=== PATIENT | female | born 1945 | race Caucasian/White ===

== ENCOUNTER 2017-01-19 11:30 | Inpatient (IN) | payer OTHER ==
[2017-01-19] VITALS (7 sets, daily range): BP systolic 135–225; BP diastolic 46–88
[~2017-01-19] VITALS: Ht 157.5 cm; Wt 84.4 kg
--- NOTE | ~2017-01-19 | CON ---
[place], [place] REPORT OF CONSULTATION NAME: MURTAZA PAZ UNIT #: [id number] ROOM: [facility] DOCTOR: CARLI RIOS MD BIRTHDATE: [birth year] DOS: 01/20/2017 HISTORY OF PRESENT ILLNESS: This is a 71-year-old -[place] woman with a history of coronary artery disease. She had multivessel CABG done in [facility] about 15 years ago and her LV function has been normal. She has COPD, also has moderate obesity, essential hypertension, hyperlipidemia, and diabetes mellitus. She has never had peptic ulcer disease or kidney problems. She continues to smoke about half a pack of cigarettes per day. She is not a very active lady. She had developed left anterior chest heaviness that lasted for about 5 minutes. She went over to her daughter's place and then was advised to come to the Emergency Department. She had 2 very mild episodes after that each lasting for a minute or so. There was no accompanying palpitation, dizziness, sweating, nausea or any loss of consciousness. She had mildly increased shortness of breath for those few minutes. She normally has exertional shortness of breath. No PND, orthopnea, or swelling of the lower extremities. Her legs hurt when she walks and otherwise as well. HOME MEDICATIONS: Include carvedilol 12.5 b.i.d., ferrous sulfate 325 mg daily, furosemide 20 daily, gabapentin 300 b.i.d., hydralazine 100 mg q.i.d., levothyroxine 25 mcg daily, metformin 500 mg daily, potassium chloride 10 mEq daily, valsartan 320 mg daily, warfarin 2 mg daily and insulin/Levemir and NovoLog. She does not seem to be on a statin drug. PHYSICAL EXAMINATION: GENERAL: Reveals a patient who is alert, oriented. She is comfortable. She looks older than her age. VITAL SIGNS: Pulse is regular at 64 beats per minute, blood pressure 150/48 yesterday, initial blood pressure was 225/70, other blood pressure has been fairly normal. NECK: Normal JVP. Bilateral carotid bruits are present, louder on the left side. HEART: There is no cardiomegaly. Auscultation reveals grade 1-2/6 early systolic murmur over the aortic area. EXTREMITIES: She has feeble pedal pulses, but the capillary refilling is pretty decent. There is no edema of lower extremities. She has bilateral femoral bruits more obvious on the right side. ABDOMEN: No abdominal bruits are present. The liver is not enlarged. RESPIRATORY: Percussion note is normal. Auscultation reveals modestly diminished breath sounds bilaterally with crackles and rhonchi. DIAGNOSTIC STUDIES: An ECG demonstrated normal sinus rhythm, minimal ST segment depression in some chest leads. Troponin I level is normal. BUN 14, creatinine 1.2, potassium 4.4. Hemoglobin 5.8 grams with MCV of 83. [place], [place] REPORT OF CONSULTATION NAME: MURTAZA PAZ UNIT #: [id number] ROOM: [facility] DOCTOR: CARLI RIOS MD BIRTHDATE: [birth year] IMPRESSION: 1. Patient with coronary artery disease, has chest pain that lasted for a short time. She has ruled out for acute myocardial infarction. 2. Moderate anemia, reason is not clear. 3. Chronic obstructive pulmonary disease and patient is an active smoker. RECOMMENDATIONS: 1. The patient was advised to quit smoking. 2. I recommend performance of a Lexiscan Cardiolite study. If this shows any ischemia, further recommendations will be offered at that time. 3. She is not on a statin drug. If no contraindication, one should be initiated. I thank you for this consult. ADDENDUM IMPRESSION: 1. 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 I think carotid duplex study may be necessary. 2. She also has significant stenosis of the arteries in the lower extremities. CARLI RIOS MD CM:CONSTR:REPORT OF CONSULTATION 1200 01/21/17 0657 interface
--- NOTE | ~2017-01-19 | EKG ---
[place], [place] ELECTROCARDIOGRAM REPORT NAME: MURTAZA PAZ UNIT #: [id number] ROOM: [facility] DOCTOR: CARLI RIOS MD BIRTHDATE: [birth year] DOS: 01/19/2017 TIME: 1140 hours. Normal sinus rhythm at 74 beats per minute with PVC. Minimal ST segment depression with T wave abnormality in lateral leads with a possibility of ischemia. An intraventricular conduction defect is also present. An abnormal ECG. No previous tracing is available for comparison. CARLI RIOS MD CM:EKGRPT:ELECTROCARDIOGRAM REPORT [id number] CARLI RIOS MD
--- NOTE | ~2017-01-19 | DS ---
[place], [place] DISCHARGE SUMMARY NAME: MURTAZA PAZ [facility] #: [id number] UNIT #: [id number] ROOM: [facility] DOCTOR: MAGGIE MALAVE MD BIRTHDATE: [birth year] DOS: 01/21/2017 DISCHARGE DIAGNOSES: 1. Acute non-STEMI [place]. The patient going for heart catheterization to [facility] under care of her secondary school registrar, Dr. West today. 2. Left-sided recurrent chest pains, resolved, positive cardiac enzymes. 3. Chronic atrial fibrillation, patient on Coumadin. 4. Coronary artery disease of the [place] vessels. 5. Centrilobular emphysema. 6. Benign essential hypertension. 7. Type 2 diabetes mellitus. HOSPITAL COURSE: The patient presented to the Emergency Department at [facility] with complaints of left-sided chest pains, which were recurrent and her cardiac enzymes came back minimally elevated. A cardiac stress test was scheduled on request of her secondary school registrar, Dr. West, which was later on cancelled and Dr. West decided to take her to [facility] for a heart catheterization for further evaluation. The patient has been chest pain free since her admission and her last cardiac enzyme came back lower and improving. The patient was closely monitored in the ICU. Urinary tract infection with 25,000 light gram-negative growth on urine culture, final culture is still pending. Blood cultures are negative. BUN and creatinine 23 and 1.16, otherwise normal serum electrolytes. The patient's chronic atrial fibrillation, controlled heart rate, anticoagulated with Coumadin. The patient had a subtherapeutic INR, so she was given extra Coumadin. Dr. West decided against any anticoagulation as the patient was chest pain free after admission. History of coronary artery disease of the [place] vessels with unstable angina. The patient going for heart catheterization. Centrilobular emphysema with chronic shortness of breath, treated with bronchodilators. Type 2 diabetes mellitus, blood sugars were monitored and reasonably controlled. Benign essential hypertension with controlled blood pressures. Her treatment was continued. LABORATORY DATA: Cardiac enzymes showed gradual increase to 0.15 and then reduced to 0.054 prior to discharge from the hospital. Urine cultures growing 25,000 colonies of light gram-negative bacilli. Blood cultures were negative x 2. Normal serum electrolytes. White cell count elevated to 18,000 and the patient was treated with IV Rocephin. There were no other signs of infection other than in the urine. The patient's chest x-ray was suggestive of congestive heart failure. DISCHARGE MANAGEMENT: Hydralazine 50 mg q.i.d., Coumadin 2 mg daily, Levemir [place], [place] DISCHARGE SUMMARY NAME: MURTAZA PAZ UNIT #: [id number] ROOM: [facility] DOCTOR: MAGGIE MALAVE MD BIRTHDATE: [birth year] insulin 25 units subQ daily, valsartan 320 mg daily, potassium chloride 10 mEq daily, furosemide 20 mg daily, metformin 500 mg daily, gabapentin 300 mg b.i.d., Coreg 12.5 mg b.i.d. The patient was taking IV ceftriaxone 1 g daily, prednisone 5 mg daily long-term. The patient transferred to [facility] under care of Dr. West, the secondary school registrar for a heart catheterization. MAGGIE MALAVE MD CM:ELIZABETH [phone] MAGGIE MALAVE MD 01/21/171935 interface
--- NOTE | ~2017-01-19 | WRIGHTHP ---
[place], [place] PATIENT HISTORY AND PHYSICAL EXAM NAME: MURTAZA PAZ [facility] #: [id number] UNIT #: [id number] ROOM: [facility] DOCTOR: MAGGIE MALAVE MD BIRTHDATE: [birth year] DOS: 01/19/2017 HISTORY OF PRESENT ILLNESS: The patient presented with, 1. Non-STEMI acute [place]. 2. Chronic atrial fibrillation. The patient anticoagulated with Coumadin. 3. History of coronary artery disease of the [place] vessels. 4. History of chronic obstructive pulmonary disease. 5. Benign essential hypertension. 6. Type 2 diabetes mellitus. The patient was admitted when she presented to the Emergency Department with left-sided chest pains, which were recurrent. 1. The patient's cardiac enzymes were found to be positive and she became asymptomatic after admission. Machine Shop Supervisor, Dr. West was consulted for further evaluation and management. 2. Urinary tract infection with 25,000 colonies of gram-negative growth in urine cultures. 3. Blood cultures were negative. 4. Chronic atrial fibrillation with controlled heart rates. The patient anticoagulated with Coumadin. Protimes were ordered. 5. Coronary artery disease of the [place] vessels with unstable angina. Positive cardiac enzymes. Dr. West consulted for heart catheterization and further evaluation. 6. Type 2 diabetes mellitus. Blood sugars are monitored. SYSTEM REVIEW: CARDIOVASCULAR SYSTEM: Complains of recurrent left chest pains. LUNGS: No increasing shortness of breath or wheezing. GASTROINTESTINAL: No nausea, vomiting, diarrhea, or constipation. HOME MEDICATIONS: Were Levemir insulin, hydralazine, valsartan, potassium chloride, furosemide, metformin, gabapentin, prednisone. PHYSICAL EXAMINATION: GENERAL APPEARANCE: Alert, oriented x 3, moderately obese, generalized weakness. HEENT AND NECK: Extraocular movements are intact. Sclerae are anicteric. Oral mucosa is moist and clean. No obvious facial weakness. Neck is supple without any lymphadenopathy. No thyromegaly. No JVD. No carotid arterial bruits. LUNGS: Clear to auscultation. No wheezing. No rhonchi. CARDIOVASCULAR SYSTEM: Heart rate is regular in rate and rhythm. S1 and S2 normally audible. No significant murmur or any other abnormal cardiac sounds. ABDOMEN: Soft, nontender. No obvious organomegaly. Bowel sounds are present. No obvious herniation. EXTREMITIES: Without significant cyanosis or edema. Warm to touch. CENTRAL NERVOUS SYSTEM: Alert and oriented x 3. Cranial nerves II-XII are intact. Speech is normal. The patient is able to move all extremities. Normal muscle strength. Deep tendon reflexes are equal on both sides. Plantars were downgoing. [place], [place] PATIENT HISTORY AND PHYSICAL EXAM NAME: MURTAZA PAZ UNIT #: [id number] ROOM: [facility] DOCTOR: MAGGIE MALAVE MD BIRTHDATE: [birth year] IMPRESSION: 1. The patient's left-sided chest pains, unstable angina, and positive cardiac enzymes. Dr. West consulted for evaluation and management. 2. Type 2 diabetes mellitus. Blood sugars to be monitored and treated and patient to be kept on no concentrated sweet diet. 3. Chronic atrial fibrillation with controlled heart rates. The patient anticoagulated with Coumadin, protimes to be ordered daily. 4. Benign essential hypertension with controlled blood pressures. The patient on hydralazine and valsartan, which were continued. MAGGIE MALAVE MD CM:HISPHYS:PATIENT HISTORY AND PHYSICAL EXAMINATION [id number] [phone] MAGGIE MALAVE MD 01/27/172043 interface
--- NOTE | ~2017-01-19 | EKG ---
[place], [place] ELECTROCARDIOGRAM REPORT NAME: MURTAZA PAZ UNIT #: [id number] ROOM: [facility] DOCTOR: GABRIEL CHAN,CARLI BIRTHDATE: [birth year] DOS: 01/19/2017 TIME: 1140 hours. Normal sinus rhythm at 74 beats per minute with a PVC. Minimal ST segment depression with T wave abnormality in lateral leads with a possibility of ischemia. An intraventricular conduction defect is also present. An abnormal ECG. No previous tracing is available for comparison. CARLI RIOS MD CM:EKGRPT:ELECTROCARDIOGRAM REPORT [id number] CARLI RIOS MD
--- NOTE | ~2017-01-19 | PR ---
[place], [place] PROGRESS NOTE NAME: MURTAZA PAZ UNIT #: [id number] ROOM: [facility] DOCTOR: MAGGIE MALAVE MD BIRTHDATE: [birth year] DOS: 01/20/2017 SUBJECTIVE: The patient is starting to feel better. No complaints of left-sided chest pains any more. OBJECTIVE: VITAL SIGNS: Blood pressure 136/37, heart rate of 55 beats per minute, breathing 14 times per minute, temperature of 98.3 degrees going up to 101.2 degrees yesterday. IMPRESSION: The patient with leukocytosis and fever from uncertain etiology. The patient's urinalysis shows no infection and chest x-ray is not showing any signs of pneumonia, but there is a possibility of a pneumonia not seen on the chest x-ray. I have started the patient on Rocephin and we will follow blood counts. 1. Left-sided chest pains with elevated troponin I levels, being evaluated by her animal care supervisor, Dr. West. The patient is not having left-sided chest pains any more. 2. The patient anticoagulated with Coumadin. Her INR is subtherapeutic, I will give her extra doses. 3. Chronic atrial fibrillation. The patient is anticoagulated with Coumadin. 4. Coronary artery disease of [place] vessels with resolved chest pains. 5. Centrilobular emphysema with chronic shortness of breath, no wheezing. 6. Benign essential hypertension. Blood pressures are better controlled. 7. Type 2 diabetes mellitus. Blood sugars are well controlled at this time. MAGGIE MALAVE MD CM:PNTRANS [id number] MAGGIE MALAVE MD 01/20/17 1243 interface
[~2017-01-19 11:30] MED LIST: ALBUTEROL2.5 MG/0.5 INH; ASPIRIN ADULT L81 M1 PO; CARDURA4 MG; CARDURA4 MG PO; CEFUROXIME AXE250 MG PO; COREG12.5 M1 PO; COREG12.5 MG PO; COREG25 MG PO; COREG6.25 MG PO; Coumadin2 MG PO; DIGOXIN0.125 MG PO; DIOVAN320 MG; DIOVAN320 MG PO; DIOVAN40 MG; ETODOLAC400 MG; ETODOLAC400 MG PO; GLUCOPHAGE500 MG PO; HYDRALAZINE HC100 MG PO; HYDRALAZINE HCL50 MG PO; HYDRALAZINE HYD50 MG PO; LASIX20 MG PO; LASIX40 MG PO; LEVEMIR100 U/ML SC; MEDROL DOSEPAK4 MG PO; NEURONTIN300 MG PO; NOVOLOG MI100 UNIT/2 SQ; PLAVIX75 MG PO; POTASSIUM CHLO10 ME4; PREDNISONE5 MG PO; SLOW-K8 MEQ PO; SYMBICORT1 AE1; VIBRAMYCIN100 MG PO; WARFARIN2 MG PO; XANAX0.5 MG PO; ZOLPIDEM10 M1 PO; ZOLPIDEM10 MG PO
[2017-01-19] MEDS ORDERED: NOVOLOG MI100 UNIT/1 SC (11:37)
[2017-01-19 12:27] LABS: BASO # 0.1 10*3/uL (0.0-0.1); BASO % 0.3 % (0.0-1.0); EOS # 0.1 10*3/uL (0.0-0.4); EOS % 0.4 % (1.0-4.0); HEMATOCRIT 29.6 % (37.0-47.0); HEMOGLOBIN 9.4 g/dl (12.0-16.0); IG # 0.2 10*3/uL (0.0-0.1); LYMPH # 1.2 10*3/uL (1.3-4.4); LYMPH % 6.3 % (27.0-41.0); MEAN CELL VOLUME 83.6 fl (81.0-99.0); MEAN CORPUSCULAR HGB 26.6 pg (27.0-31.0); MEAN CORPUSCULAR HGB CONC 31.8 g/dl (33.0-37.0); MONO # 1.2 10*3/uL (0.1-1.0); MONO % 6.5 % (3.0-9.0); NEUT # 15.8 10*3/uL (2.3-7.9); NEUT % 85.6 % (47.0-73.0); PLATELET COUNT AUTOMATED 323 10*3/uL (130-400); RED BLOOD COUNT 3.54 10*6/uL (4.10-5.10); RED CELL DISTRI WIDTH 16.1 % (0-14.5); WHITE BLOOD COUNT 18.5 10*3/uL (4.8-10.8)
[2017-01-19 12:37] LABS: PROTHROMBIN TIME 11.1 SECONDS (9.0-12.4)
[2017-01-19 12:56] LABS: ALBUMIN 3.1 gm/dl (3.1-4.5); BILIRUBIN, TOTAL 0.7 mg/dl (0.2-1.0); MAGNESIUM 1.7 mg/dL (1.5-2.1); POTASSIUM 4.4 mmol/L (3.5-5.1); TOTAL PROTEIN 6.8 gm/dL (6.4-8.2)
[2017-01-19 12:58] LABS: CKMB 1.5 ng/ml (0.5-3.6)
[2017-01-19 13:02] LABS: TROPONIN I 0.1 ng/ml (<0.045)
[2017-01-19] MEDS ORDERED: SYNTHROID25 MCG PO (14:57)
[2017-01-19] MEDS ORDERED: IRON325 M1 PO (14:57)
[2017-01-19] MEDS ORDERED: COLACE100 MG PO (15:02)
[2017-01-20] VITALS: BP 157/52
[2017-01-20 04:00] VITALS: BP 136/37
[2017-01-20 05:14] LABS: BILIRUBIN NEGATIVE (NEGATIVE); BLOOD NEGATIVE (NEGATIVE); CLARITY CLEAR (CLEAR); COLOR YELLOW (YELLOW); GLUCOSE NEGATIVE (NEGATIVE); KETONE NEGATIVE (NEGATIVE); LEUKO ESTERASE NEGATIVE (NEGATIVE); NITRITE NEGATIVE (NEGATIVE); PH 5.5 (5.0-9.0); PROTEIN 1+ (NEGATIVE); UROBILINOGEN 0.2 E.U./dl (0.2-1.0)
[2017-01-20 05:19] LABS: EPITHELIAL CELLS 35-40
[2017-01-20 05:21] LABS: BACTERIA TRACE
[2017-01-20 05:25] LABS: URINE REFLEX COMMENT NO (NO)
[2017-01-20 06:15] LABS: BASO # 0.1 10*3/uL (0.0-0.1); BASO % 0.5 % (0.0-1.0); EOS # 0.1 10*3/uL (0.0-0.4); EOS % 0.4 % (1.0-4.0); HEMOGLOBIN 8.5 g/dl (12.0-16.0); IG # 0.1 10*3/uL (0.0-0.1); LYMPH # 2.2 10*3/uL (1.3-4.4); MEAN CELL VOLUME 83.3 fl (81.0-99.0); MEAN CORPUSCULAR HGB 26.2 pg (27.0-31.0); MEAN CORPUSCULAR HGB CONC 31.5 g/dl (33.0-37.0); MEAN PLATELET VOLUME 9.6 fl (9.6-12.3); MONO # 1.3 10*3/uL (0.1-1.0); MONO % 7.4 % (3.0-9.0); NEUT # 14.3 10*3/uL (2.3-7.9); PLATELET COUNT AUTOMATED 300 10*3/uL (130-400); RED BLOOD COUNT 3.24 10*6/uL (4.10-5.10); RED CELL DISTRI WIDTH 16.2 % (0-14.5); WHITE BLOOD COUNT 18.1 10*3/uL (4.8-10.8)
[2017-01-20 06:22] LABS: POTASSIUM 3.4 mmol/L (3.5-5.1)
[2017-01-20 08:00] VITALS: BP 150/45
[2017-01-20 12:00] VITALS: BP 113/35
[2017-01-20 16:00] VITALS: BP 123/47
[2017-01-20 20:00] VITALS: BP 136/35
[2017-01-21] VITALS: BP 138/48
[2017-01-21 04:00] VITALS: BP 147/48
[2017-01-21 06:24] LABS: BASO # 0.1 10*3/uL (0.0-0.1); BASO % 0.4 % (0.0-1.0); EOS # 0.4 10*3/uL (0.0-0.4); EOS % 2.8 % (1.0-4.0); HEMATOCRIT 25.9 % (37.0-47.0); HEMOGLOBIN 7.9 g/dl (12.0-16.0); IG # 0.1 10*3/uL (0.0-0.1); LYMPH # 2.3 10*3/uL (1.3-4.4); MEAN CELL VOLUME 84.9 fl (81.0-99.0); MEAN CORPUSCULAR HGB 25.9 pg (27.0-31.0); MEAN CORPUSCULAR HGB CONC 30.5 g/dl (33.0-37.0); MONO # 1.2 10*3/uL (0.1-1.0); MONO % 8.3 % (3.0-9.0); NEUT # 10.2 10*3/uL (2.3-7.9); NEUT % 71.8 % (47.0-73.0); PLATELET COUNT AUTOMATED 290 10*3/uL (130-400); RED BLOOD COUNT 3.05 10*6/uL (4.10-5.10); RED CELL DISTRI WIDTH 15.9 % (0-14.5); WHITE BLOOD COUNT 14.2 10*3/uL (4.8-10.8)
[2017-01-21 06:48] LABS: POTASSIUM 3.5 mmol/L (3.5-5.1)
[2017-01-21 08:00] VITALS: BP 137/65
== END 2017-01-21 13:58 | disposition other institution (70) | DRG 871 ==
LOC: ED 11:30 → EDHOLD 13:22 → ICCU 13:22
PROVIDERS: Emergency Medicine; Internal Medicine
DX: A41.9 Sepsis, unspecified organism (principal); I21.4 Non-ST elevation (NSTEMI) myocardial infarction; I11.0 Hypertensive heart disease with heart failure; I50.9 Heart failure, unspecified; N39.0 Urinary tract infection, site not specified; E11.9 Type 2 diabetes mellitus without complications; D64.9 Anemia, unspecified; I48.2 Chronic atrial fibrillation; B96.89 Other specified bacterial agents as the cause of diseases classified elsewhere; J43.2 Centrilobular emphysema; R07.89 Other chest pain; I25.10 Atherosclerotic heart disease of native coronary artery without angina pectoris; Z79.01 Long term (current) use of anticoagulants; Z71.6 Tobacco abuse counseling; E78.5 Hyperlipidemia, unspecified; E66.9 Obesity, unspecified; F17.210 Nicotine dependence, cigarettes, uncomplicated; Z95.1 Presence of aortocoronary bypass graft; Z68.34 Body mass index [BMI] 34.0-34.9, adult; Z98.51 Tubal ligation status; Z80.8 Family history of malignant neoplasm of other organs or systems; Z79.84 Long term (current) use of oral hypoglycemic drugs